=== PATIENT | female | born 1970 | race Caucasian/White ===

== ENCOUNTER → 2016-04-19 | Outpatient (CLI) | payer MEDICARE, OTHER ==
[~2016-04-19] MED LIST: ADVAIR 1001 DISK W/D PO; ALBUTEROL17 GM INH; BENADRYL PO; CALCIUM 500 + D1 TAB PO; CELEBREX PO; HYOSCYAMINE PO; KLONOPIN PO; LEVSIN PO; NEXIUM PO; RHINOCORT AQUA8.6 GM; SINGULAIR PO; ZOFRAN PO
[2016-04-23 22:12] LABS: NIL 0.04 IU/mL (()); QUANTIFERON NEGATIVE (Negative); TB AG-NIL 0.06 IU/mL (())
== END | disposition home or self-care (01) ==
LOC: CLAB 15:13
PROVIDERS: Internal Medicine Gastroenterology
DX: K50.90 Crohn's disease, unspecified, without complications (principal)
CPT/HCPCS: 36415; 86480